=== PATIENT | female | born 1970 | race Two or more races ===

== ENCOUNTER 2023-02-04 07:57 | Day surgery (SDC) | payer OTHER ==
[~2023-02-04] VITALS: Ht 162.6 cm; Wt 88.5 kg
[~2023-02-04 07:57] MED LIST: COZAAR100 MG PO; CYMBALTA30 MG PO; HYDROCHLOROTH12.5 MG PO
== END 2023-02-04 22:40 | disposition home or self-care (01) ==
LOC: CIR.AMB 07:57
PROVIDERS: ATTEND Surgery
DX: D24.2 Benign neoplasm of left breast (principal); N60.92 Unspecified benign mammary dysplasia of left breast; N60.22 Fibroadenosis of left breast; I10 Essential (primary) hypertension; Z88.0 Allergy status to penicillin; Z20.822 Contact with and (suspected) exposure to COVID-19